=== PATIENT | female | born 1975 | race Two or more races ===

== ENCOUNTER 2025-01-10 06:02 | Day surgery (SDC) | payer BC, SELFPAY ==
[2024-12-30 11:24] LABS: Hematocrit 43.4 % (37.0-47.0); Hemoglobin 14.5 g/dL (12.0-16.0); Mean Corp Hgb Conc. 33.4 g/dL (33.0-37.0); Mean Corpuscular Hgb 30.9 pg (27.0-31.0); Mean Corpuscular Volume 92.5 fL (81.0-99.0); Mean Platelet Volume 9.5 fL (7.4-10.4); Platelet Count 336 10^3/uL (130-400); Red Blood Cell Count 4.69 10^6/uL (4.20-5.40); Red Cell Dist. Width 11.8 % (11.5-14.5); White Blood Cell Count 4.2 10^3/uL (4.8-10.8)
[2024-12-30 11:58] LABS: Blood Urea Nitrogen 14 mg/dl (7-17); Calcium 10.1 mg/dl (8.4-10.2); Carbon Dioxide 27 mmol/L (22-30); Chloride 99 mmol/L (98-107); Glucose 92 mg/dl (70-99); Potassium 3.9 mmol/L (3.5-5.1); Sodium 138 mmol/L (135-145); eGFR > 60.00
[2024-12-30 14:13] VITALS: BMI 25.8
[2025-01-10] VITALS (11 sets, daily range): BP systolic 107–125; BP diastolic 69–79; BMI 25.8
[2025-01-10] MEDS: NORMOSOL-R/PLASMALYTE-A 1000 IV (06:54)
[2025-01-10] MEDS: Pyridium 200 MG PO (06:54)
[2025-01-10] MEDS: HEPARIN 5000 UNITS SC (06:59)
== END 2025-01-10 13:50 | disposition home or self-care (01) ==
LOC: SDS 06:02
PROVIDERS: ATTENDING PHYSICIAN Obstetrics & Gynecology; FAMILY PHYSICIAN Student in an Organized Health Care Education/Training Program
DX: N81.2 Incomplete uterovaginal prolapse (principal); N95.8 Other specified menopausal and perimenopausal disorders; N39.3 Stress incontinence (female) (male); N36.41 Hypermobility of urethra; N80.03 Adenomyosis of the uterus; D25.1 Intramural leiomyoma of uterus; D25.2 Subserosal leiomyoma of uterus; N83.8 Other noninflammatory disorders of ovary, fallopian tube and broad ligament; N72 Inflammatory disease of cervix uteri
CPT/HCPCS: 57425; 58571; 57250; 57288; 88305; 36415; 80048; 85027; 86850; 86900; 86901; 93005; C1763; C1771